=== PATIENT | female | born 1975 | race Hispanic/Latino ===

== ENCOUNTER 2018-09-07 13:57 | Outpatient (CLI) | payer BC ==
--- NOTE | 2018-09-07 14:46 | MMO ---
Bilateral MAMMO Bilat Diag [facility]. CLINICAL HISTORY: Patient is 43 years old and is seen for diagnostic exam. The patient has the following family history of breast cancer: grandmother, at age 71. The patient has no personal history of cancer. VIEWS: The views performed were: bilateral craniocaudal with tomosynthesis; bilateral mediolateral oblique with tomosynthesis; and bilateral mediolateral. FILMS COMPARED: The present examination has been compared to a prior imaging study performed at [facility] on 09/15/2016. MAMMOGRAM FINDINGS: There are scattered fibroglandular densities. There are benign appearing calcifications in the left breast. Density in the right outer anterior breast is stable and corresponds to a lymph node. There are no suspicious masses, suspicious calcifications, or new areas of architectural distortion. IMPRESSION: THERE IS NO MAMMOGRAPHIC EVIDENCE OF MALIGNANCY. A ROUTINE FOLLOW-UP MAMMOGRAM IN 1 YEAR IS RECOMMENDED. THE RESULTS OF THIS EXAM WERE SENT TO THE PATIENT. ACR BI-RADS Category 2 - Benign finding MAMMOGRAPHY NOTE: 1. A negative mammogram report should not delay a biopsy if a dominant of clinically suspicious mass is present. 2. Approximately 10% to 15% of breast cancers are not detected by mammography. 3. Adenosis and dense breasts may obscure an underlying neoplasm.
== END 2018-09-07 13:58 | disposition home or self-care (01) ==
LOC: BICMAMMO 13:57
PROVIDERS: ATTEND Family Medicine
DX: R92.8 Other abnormal and inconclusive findings on diagnostic imaging of breast (principal); Z80.3 Family history of malignant neoplasm of breast
CPT/HCPCS: 77066; G0279

== ENCOUNTER 2020-11-14 09:08 | Outpatient (CLI) | payer BC | END 2020-11-14 09:09 | disposition home or self-care (01) | LOC: BICMAMMO 09:08 | PROVIDERS: ATTEND Physician Assistant Medical | DX: Z12.31 Encounter for screening mammogram for malignant neoplasm of breast (principal); Z80.3 Family history of malignant neoplasm of breast | CPT/HCPCS: 77063; 77067 ==

== ENCOUNTER 2025-03-28 09:01 | Outpatient (CLI) | payer BC ==
[2025-03-28] MEDS ORDERED: Iopamidol-370 76% 500 ML BOT (X-RAY USE) FS ONE (09:13)
== END 2025-03-28 09:02 | disposition home or self-care (01) ==
LOC: RAD 09:01
PROVIDERS: ATTEND Obstetrics & Gynecology
DX: N99.81 Other intraoperative complications of genitourinary system (principal)
CPT/HCPCS: 51600; 74430; Q9967